=== PATIENT | male | born 1960 | race Caucasian/White ===

== ENCOUNTER → 2016-05-13 | Day surgery (SDC) | payer OTHER ==
[2016-05-13 09:35] LABS: HCT 41.7 % (42.0-52.0); HGB 14.1 g/dl (13.2-18.0); MCH 28.7 pg (25.0-31.0); MCHC 33.8 g/dL (32.0-36.0); MCV 84.9 fL (78.0-100.0); MPV 9.9 fL (6.0-9.5); RBC 4.91 M/uL (4.70-6.00); RDW 14.5 % (11.5-14.0); WBC 10.2 K/uL (4.0-10.5)
[2016-05-13 09:58] LABS: ALBUMIN 4.2 g/dL (3.5-5.0); BILIRUBIN - TOTAL 0.6 mg/dL (0.1-1.0); CREATININE 0.9 mg/dL (0.7-1.2); GLOBULIN (CALCULATION) 3.6 g/dL (2.2-4.2); POTASSIUM 3.6 mmol/L (3.5-5.1); TOTAL PROTEIN 7.8 g/dL (6.4-8.3)
== END | disposition home or self-care (01) ==
LOC: FAS 08:57
PROVIDERS: Surgery
DX: Z12.11 Encounter for screening for malignant neoplasm of colon (principal); K57.30 Diverticulosis of large intestine without perforation or abscess without bleeding; Z80.0 Family history of malignant neoplasm of digestive organs; K21.9 Gastro-esophageal reflux disease without esophagitis; Z79.899 Other long term (current) drug therapy; I10 Essential (primary) hypertension; G47.30 Sleep apnea, unspecified; Z99.81 Dependence on supplemental oxygen
CPT/HCPCS: 36415; 80053; J2704

== ENCOUNTER → 2021-06-17 | Day surgery (SDC) | payer OTHER ==
[~2021-06-17] VITALS: Ht 193 cm; Wt 195.2 kg
[~2021-06-17] MED LIST: EFFEXOR-XR 75 M75 MG PO; HYTRIN5 MG PO; LASIX20 MG PO; LISINOPRIL-HCT1 EAC1 PO; NORVASC5 MG PO; PROTONIX 40MG T40 MG PO; VICODIN 10/3251 EACH PO; ZANTAC150 MG PO; ZOFRAN8 MG PO
[2021-06-17 08:33] LABS: HCT 41.3 % (42.0-52.0); HGB 13.9 g/dl (13.2-18.0); MCH 28.6 pg (25.0-31.0); MCHC 33.7 g/dL (32.0-36.0); MPV 10.8 fL (6.0-9.5); RBC 4.86 M/uL (4.70-6.00); RDW 15.4 % (11.5-14.0); WBC 12.4 K/uL (4.0-10.5)
[2021-06-17 08:56] LABS: ALBUMIN 3.4 g/dL (3.4-5.0); BILIRUBIN - TOTAL 0.7 mg/dL (0.2-1.0); BUN/CREAT RATIO (CALC) 15.8 RATIO; CREATININE 0.95 mg/dL (0.67-1.17); GLOBULIN (CALCULATION) 4.5 g/dL; POTASSIUM 3.4 mmol/L (3.5-5.1); TOTAL PROTEIN 7.9 g/dL (6.4-8.2)
== END | disposition home or self-care (01) ==
LOC: FAS 07:55
PROVIDERS: Surgery
DX: Z12.11 Encounter for screening for malignant neoplasm of colon (principal); K57.30 Diverticulosis of large intestine without perforation or abscess without bleeding; Z80.0 Family history of malignant neoplasm of digestive organs; I10 Essential (primary) hypertension; N40.0 Benign prostatic hyperplasia without lower urinary tract symptoms; K21.9 Gastro-esophageal reflux disease without esophagitis; G47.33 Obstructive sleep apnea (adult) (pediatric); F41.9 Anxiety disorder, unspecified; Z98.84 Bariatric surgery status; Z79.899 Other long term (current) drug therapy
CPT/HCPCS: 36415; 80053; J2704; J7120